=== PATIENT | female | born 1925 | race Caucasian/White ===

== ENCOUNTER 2017-01-12 12:03 | Emergency (ER) | payer OTHER ==
[~2017-01-12] VITALS: Ht 157.5 cm; Wt 69.0 kg
[~2017-01-12 12:03] MED LIST: ASPIR 8181 M1 PO; ATIVAN INTE2 MG/1 ML PO; CALTRATE 600 +1 EAC2 PO; CELEXA20 MG PO; CITALOPRAM HBR20 M1 PO; Calcium Carbonate,Ca PO; Colace PO; ENALAPRIL MALEA20 MG PO; Ecotrin PO; FENOFIBRATE54 M1 PO; Feosol PO; ICAPS MULTIV1 TABLET PO; INDERAL LA120 MG PO; INDERAL40 MG PO; Inderal PO; MORPHINE CON20 MG/M1 PO; NORVASC5 MG PO; Norvasc PO; OMNICEF300 MG PO; PRAVACHOL80 MG PO; PRILOSEC OTC20 MG PO; Pravachol PO; PriLOSEC PO; Senokot S,Pericolace PO; TRICOR145 MG PO; VALIUM5 MG PO; VASOTEC20 MG PO; VITAMIN D31000 UNIT PO; Valium PO; Vasotec PO; Vicodin,Norco 5/325 PO; Vitamin D PO; celeXA PO
[2017-01-12 17:41] VITALS: BP 182/88
== END 2017-01-12 17:48 | disposition home or self-care (01) ==
LOC: EME → EDBD 12:03 → EME 17:48
PROC: 0SS9XZZ Reposition Right Hip Joint, External Approach (ICD-10-PCS; principal; 2017-01-12)
DX: T84.020A Dislocation of internal right hip prosthesis, initial encounter (principal); E78.5 Hyperlipidemia, unspecified; I10 Essential (primary) hypertension; Z96.641 Presence of right artificial hip joint; X58.XXXA Exposure to other specified factors, initial encounter; Z85.038 Personal history of other malignant neoplasm of large intestine; Z96.652 Presence of left artificial knee joint; Z88.6 Allergy status to analgesic agent
CPT/HCPCS: 73501; 99281; 99285; J3010

== ENCOUNTER 2017-07-01 09:21 | Emergency (ER) | payer OTHER ==
[~2017-07-01] VITALS: Ht 157.5 cm; Wt 67.2 kg
[~2017-07-01 09:21] MED LIST changes: +NORVASC10 MG PO; +PROPRANOLOL HCL40 MG PO
[2017-07-01 13:43] VITALS: BP 126/62
== END 2017-07-01 13:40 | disposition home or self-care (01) ==
LOC: EME → EDBD 09:21 → EME 13:40
PROC: 0SW9XJZ Revision of Synthetic Substitute in Right Hip Joint, External Approach (ICD-10-PCS; principal; 2017-07-01)
DX: T84.020A Dislocation of internal right hip prosthesis, initial encounter (principal); Y79.2 Prosthetic and other implants, materials and accessory orthopedic devices associated with adverse incidents; Z96.641 Presence of right artificial hip joint; I10 Essential (primary) hypertension; Z85.038 Personal history of other malignant neoplasm of large intestine; Z79.82 Long term (current) use of aspirin
CPT/HCPCS: 73502; 99281; 99285

== ENCOUNTER 2017-07-10 18:20 | Emergency (ER) | payer OTHER ==
[~2017-07-10] VITALS: Ht 157.5 cm; Wt 67.4 kg
[2017-07-10 21:07] VITALS: BP 158/78
== END 2017-07-10 21:08 | disposition home or self-care (01) ==
LOC: EME 18:20
PROC: 0SWRXJZ Revision of Synthetic Substitute in Right Hip Joint, Femoral Surface, External Approach (ICD-10-PCS; principal; 2017-07-10)
DX: T84.020A Dislocation of internal right hip prosthesis, initial encounter (principal); X58.XXXA Exposure to other specified factors, initial encounter; Y92.002 Bathroom of unspecified non-institutional (private) residence as the place of occurrence of the external cause; M24.451 Recurrent dislocation, right hip; Z96.641 Presence of right artificial hip joint; I10 Essential (primary) hypertension; Z85.038 Personal history of other malignant neoplasm of large intestine; Z79.82 Long term (current) use of aspirin
CPT/HCPCS: 73501; 73502; 99281; 99285; J3010

== ENCOUNTER 2017-09-29 22:51 | Emergency (ER) | payer OTHER ==
[~2017-09-29] VITALS: Ht 157.5 cm; Wt 68.1 kg
[2017-09-29 23:35] LABS: HEMATOCRIT 36.4 % (36.0-46.0); MCH 31.6 PG (29.0-34.0); MCHC 33.5 G/DL (30.0-36.0); MCV 94.3 FL (83-99); MEAN PLAT.VOLUME 11.9 uM^3 (9.5-12.4); PLATELET COUNT 171 K/uL (156-360); RBC DIS.WIDTH-CV 12.3 % (11.8-14.6); RBC DIS.WIDTH-SD 42.7 % (39-53); RED BLOOD COUNT 3.86 M/uL (3.80-5.20)
[2017-09-29 23:49] LABS: CHLORIDE 104 mEq/L (99-109); POTASSIUM 3.6 mEq/L (3.7-5.4); SODIUM 143 mEq/L (136-147)
[2017-09-29 23:51] LABS: GLUCOSE 104 mg/dL (70-99)
[2017-09-29 23:52] LABS: ANION GAP 12 MEQ/L (2-14)
[2017-09-29 23:55] LABS: GFR ESTIMATE (CALCULATED) > 59 mL/min/
[2017-09-29 23:56] LABS: UREA NITROGEN (BUN) 20 mg/dL (9-23)
[2017-09-30 02:12] VITALS: BP 165/77
== END 2017-09-30 02:12 | disposition home or self-care (01) ==
LOC: EME 22:51
DX: K62.5 Hemorrhage of anus and rectum (principal); K64.9 Unspecified hemorrhoids; I44.0 Atrioventricular block, first degree; Z85.038 Personal history of other malignant neoplasm of large intestine; Z90.49 Acquired absence of other specified parts of digestive tract; I10 Essential (primary) hypertension; Z79.82 Long term (current) use of aspirin
CPT/HCPCS: 80048; 81003; 85027; 86850; 86900; 86901; 93005; 99281; 99284